=== PATIENT | female | born 1955 | race Caucasian/White ===

== ENCOUNTER → 2019-09-09 | Outpatient (CLI) | payer BC | LOC: LL.MAM 13:20 | PROVIDERS: ATTEND Family Medicine | DX: Z12.31 Encounter for screening mammogram for malignant neoplasm of breast (principal) | CPT/HCPCS: 77063; 77067 ==

== ENCOUNTER 2021-05-14 16:35 | Emergency (ER) | payer SELFPAY ==
[2021-05-14] MEDS ORDERED: Acetaminophen/HYDROcodone 325-5 MG Tab PO ONE (16:38)
[2021-05-14] MEDS ORDERED: Ondansetron 4 MG Tab.DIS PO ONE (16:38)
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
[2021-05-14] MEDS ORDERED: Acetaminophen/HYDROcodone 325-5 MG Tab ONE (18:12)
[2021-05-14 19:30] VITALS: BP 121/65; PULSE 77
== END 2021-05-14 18:40 | disposition home or self-care (01) ==
LOC: LL.ED 16:35
DX: S42.022A Displaced fracture of shaft of left clavicle, initial encounter for closed fracture (principal); W23.0XXA Caught, crushed, jammed, or pinched between moving objects, initial encounter
CPT/HCPCS: 73000-LT; 73030-LT; 99283; 99283-25; A9270-GY

== ENCOUNTER 2021-11-04 09:32 | Emergency (ER) | payer MEDICARE ==
--- NOTE | 2021-11-04 09:57 | EDM.PDOC ---
ED HPI GENERAL MEDICAL PROBLEM - General Chief Complaint: Genitourinary Problem Stated Complaint: "possible UTI" Time Seen by Provider: 11/04/21 09:45 Source of Information: Reports: Patient History Limitations: Reports: No Limitations - History of Present Illness INITIAL COMMENTS - FREE TEXT/NARRATIVE: Pt. presents to ER with complaints of dysuria, frequency, and urgency. Pt. states that this started on Friday and states that it is worse now. Denies any fever or chills. No nausea or vomiting. Pt. states that she feels generally unwell. Pt. denies any lightheadedness. No cough. No chest congestion. No sore throat or rhinorrhea. Onset: Today Onset Date: 11/04/21 - Related Data Allergies Allergy/AdvReac Type Severity Reaction Status Date / Time No Known Allergies Allergy Verified 05/14/21 19:24 Home Meds: Home Meds Celecoxib 1 cap PO DAILY PRN 05/14/21 [History] Past Medical History Musculoskeletal History: Reports: Arthritis Social & Family History - Caffeine Use Caffeine Use: Reports: Coffee ED ROS GENERAL - Review of Systems Review Of Systems: See Below Constitutional: Reports: Malaise. Denies: Fever, Chills, Weakness, Fatigue HEENT: Reports: No Symptoms Respiratory: Reports: No Symptoms Cardiovascular: Reports: No Symptoms Endocrine: Reports: No Symptoms GI/Abdominal: Reports: No Symptoms. Denies: Nausea, Vomiting : Reports: Dysuria, Frequency, Urgency. Denies: Flank Pain Musculoskeletal: Reports: No Symptoms Skin: Reports: No Symptoms Neurological: Reports: No Symptoms Psychiatric: Reports: No Symptoms Hematologic/Lymphatic: Reports: No Symptoms Immunologic: Reports: No Symptoms ED EXAM, GENERAL - Physical Exam Exam: See Below Exam Limited By: No Limitations General Appearance: Alert, WD/WN, No Apparent Distress Back Exam: Normal Inspection, Full Range of Motion. No: CVA Tenderness (L), CVA Tenderness (R), Decreased Range of Motion Course - Orders/Labs/Meds Orders: Active Orders 24 hr Category Date Time Status CULTURE URINE [RM] Stat Lab 11/04/21 09:35 Received Labs: Laboratory Tests 11/04/21 Range/Units 09:35 Specimen Type Urincc Urine Color Yellow Urine Appearance Cloudy Urine pH 6.5 (5.0-9.0) Ur Specific [place] 1.020 (1.005-1.030) Urine Protein 100 H (NEGATIVE) mg/dL Urine Glucose (UA) Negative (NEGATIVE) mg/dL Urine Ketones Negative (NEGATIVE) mg/dL Urine Occult Blood Large H (NEGATIVE) Urine Nitrite Negative (NEGATIVE) Urine Bilirubin Negative (NEGATIVE) Urine Urobilinogen 0.2 (0.2-1.0) E.U./dL Ur Leukocyte Esterase Large H (NEGATIVE) Urine RBC 20-30 H /HPF Urine WBC Packed /HPF Ur Epithelial Cells Few /LPF Urine Bacteria Many H (NONE TO FEW) /HPF Departure - Departure Time of Disposition: 10:26 Disposition: Home, Self-Care 01 Clinical Impression: UTI, Urinary tract infectious disease - Discharge Information Instructions: Nitrofurantoin tablets or capsules, Urinary Tract Infection, Adult, Probiotics Forms: ED Department Discharge Additional Instructions: macrobid 100mg 1 twice daily for 7 days Drink plenty of fluids. Tylenol and ibuprofen as needed for fever/discomfort. Follow-up in clinic in 7-10 days if not gradually improving - Problem List Review Problem List Initiated/Reviewed/Updated: Yes - My Orders Last 24 Hours: My Active Orders 11/04/21 09:35 CULTURE URINE [RM] Stat - Assessment/Plan Last 24 Hours: My Active Orders 11/04/21 09:35 CULTURE URINE [RM] Stat Plan: macrobid 100mg 1 twice daily for 7 days Drink plenty of fluids. Tylenol and ibuprofen as needed for fever/discomfort. Follow-up in clinic in 7-10 days if not gradually improving
== END 2021-11-04 10:25 | disposition home or self-care (01) ==
LOC: LL.ED 09:32
DX: N39.0 Urinary tract infection, site not specified (principal)
CPT/HCPCS: 81001; 87086; 87088; 87186; 99283